=== PATIENT | female | born 1950 | race Caucasian/White ===

== ENCOUNTER 2025-06-17 12:42 | Outpatient (CLI) | payer MEDICARE | END 2025-06-17 12:43 | disposition home or self-care (01) | LOC: CSHWCC 12:42 | PROVIDERS: ATTEND Nurse Practitioner Family | DX: L89.93 Pressure ulcer of unspecified site, stage 3 (principal); E10.622 Type 1 diabetes mellitus with other skin ulcer; L98.499 Non-pressure chronic ulcer of skin of other sites with unspecified severity; E10.51 Type 1 diabetes mellitus with diabetic peripheral angiopathy without gangrene | CPT/HCPCS: 11042; G0463; 99213 ==

== ENCOUNTER 2025-06-24 09:50 | Outpatient (CLI) | payer MEDICARE | END 2025-06-24 09:51 | disposition home or self-care (01) | LOC: CSHWCC 09:50 | PROVIDERS: ATTEND Nurse Practitioner Family | DX: L89.93 Pressure ulcer of unspecified site, stage 3 (principal); E10.622 Type 1 diabetes mellitus with other skin ulcer; L98.499 Non-pressure chronic ulcer of skin of other sites with unspecified severity; E10.51 Type 1 diabetes mellitus with diabetic peripheral angiopathy without gangrene | CPT/HCPCS: 11042; G0463; 99213 ==

== ENCOUNTER 2025-07-01 12:34 | Outpatient (CLI) | payer MEDICARE | END 2025-07-01 12:35 | disposition home or self-care (01) | LOC: CSHWCC 12:34 | PROVIDERS: ATTEND Nurse Practitioner Family | DX: L89.93 Pressure ulcer of unspecified site, stage 3 (principal); E10.622 Type 1 diabetes mellitus with other skin ulcer; L98.499 Non-pressure chronic ulcer of skin of other sites with unspecified severity; E10.51 Type 1 diabetes mellitus with diabetic peripheral angiopathy without gangrene | CPT/HCPCS: 11042 ==

== ENCOUNTER 2025-07-08 13:41 | Outpatient (CLI) | payer MEDICARE | END 2025-07-08 13:42 | disposition home or self-care (01) | LOC: CSHWCC 13:41 | PROVIDERS: ATTEND Nurse Practitioner Family | DX: L89.93 Pressure ulcer of unspecified site, stage 3 (principal); E10.622 Type 1 diabetes mellitus with other skin ulcer; L98.499 Non-pressure chronic ulcer of skin of other sites with unspecified severity; E10.51 Type 1 diabetes mellitus with diabetic peripheral angiopathy without gangrene | CPT/HCPCS: 11042; 99213; G0463 ==

== ENCOUNTER 2025-08-05 12:45 | Outpatient (CLI) | payer MEDICARE | END 2025-08-05 12:46 | disposition home or self-care (01) | LOC: CSHWCC 12:45 | PROVIDERS: ATTEND Nurse Practitioner Family | DX: L89.93 Pressure ulcer of unspecified site, stage 3 (principal); E10.622 Type 1 diabetes mellitus with other skin ulcer; L98.499 Non-pressure chronic ulcer of skin of other sites with unspecified severity; E10.51 Type 1 diabetes mellitus with diabetic peripheral angiopathy without gangrene | CPT/HCPCS: 97597 ==